=== PATIENT | female | born 1945 | race Caucasian/White ===

== ENCOUNTER 2024-08-19 20:30 | Inpatient (IN) | payer MEDICARE, SELFPAY ==
[2024-08-19] VITALS (7 sets, daily range): BP systolic 132–214; BP diastolic 62–114; BMI 30.2; BMI 29.6
--- NOTE | 2024-08-19 16:49 | ED.GENMED ---
History of Present Illness
General
Chief Complaint: Blood Pressure Problem
Source: patient and spouse
Exam Limitations: none
Time Seen by Provider: 08/19/24 16:48
History of Present Illness
History of Present Illness:
Patient complaining of hypertension issues. Long history of mild hypertension. Controlled on low-dose carvedilol
Past History
Past History
ED Past Medical History: HTN and Other (Seizures)
ED Past Surgical History: Appendectomy, Cholecystectomy and Other (Eye surgery. Thyroidectomy)
Review of Systems
Review of Systems
All Other Systems: Not applicable
Respiratory: Reports no symptoms
Cardiac: Reports no symptoms
ABD/GI: Reports no symptoms
Phy Exam
Physical Exam
Physical Exam:
GENERAL: Alert and oriented in no apparent distress
EYE: Orbits normal. Discharge
NECK: Supple, no significant adenopathy. No carotid bruit
ENT: Pharynx without erythema
CARDIAC: Regular rate and rhythm without any obvious murmurs.
LUNGS: Clear breath sounds,normal
ABDOMEN: Soft, without focal tenderness or distention
NEUROLOGICAL: Alert and oriented , grossly non-focal. Speech normal. Cranial nerves II through XII intact.
SKIN: Warm and dry, no rash or lesion, no discoloration, skin intact.
MUSCULOSKELETAL: No edema,no deformity.Good color
PSYCH: Normal and appropriate interaction..
Course
Orders/Labs/Results
Orders:
Orders
08/19/24 16:29
ECG [Electrocardiogram (*1)] Urgent
Reason for Study: Hypertension, Benign
EKG- Treatment ONCE
08/19/24 16:52
Complete Blood Count/With Diff Urgent
Comprehensive Metabolic Panel Urgent
TSH Reflex To Free T4 Urgent
Comment: ADD ON
Troponin I Urgent
08/19/24 17:20
Add On- LAB Urgent
Tests Added?: tsh reflex t4
CT Head W/o Iv Contrast Urgent
Comment:
Reason For Exam: Headache/hypertension
Cardiac Monitoring- Treatment ONCE
IV Insert/Care/Rem.- Treatment PRN
08/19/24 20:04
Admit/Transfer Patient As Directed
Co-Sign Provider:
Level of Care: Inpatient admission
Assign to:: Telemetry
Physician / Group: hospitalist
Diagnosis: hyponatremia
Reason for Telemetry: Other
Other Reason for Telemetry: uncontrolled bp
Date to Stop Telemetry: 08/21/24
Time to Stop Telemetry: 11:00
Reason for Hospitalization: uncontrolled bp, hyponatremia
Expected length of stay greater than two midnights?: Yes
ELOS- Estimated Length of Stay in days: 2
I certify the patient meets the requirements for IP care: Yes
PRN Pain Medication Management As Directed
May give lesser potent ordered pain med per pt: Yes
preference::
Protocol:: Medication orders for pain may be administered in a
manner that supports deferring to patient preference
when the pt is:
- Requesting an ordered lesser potent pain medication.
Least to most potent pain medications are defined
as: acetaminophen < NSAID < tramadol < opioids
(morphine, oxycodone, hydromorphone).
- Requesting a lesser dose of the same medication IF
ORDERED.
- Requesting a less intrusive route of administration
if both routes are prescribed by the provider (PO <
IV).
08/19/24 20:05
Code Status As Directed
Resuscitation Status: Full Code
08/19/24 22:04
Acetaminophen [Tylenol] 650 mg PO Q4HPRN PRN
Bisacodyl [Dulcolax] 10 mg RECTAL [id number] PRN
Docusate W/Senna [Senokot-S] 1 tablet PO BIDPRN PRN
HydrALAZINE [Apresoline] 10 mg IV Q6HPRN PRN
Losartan [Cozaar] 100 mg PO HS
Ondansetron Injectable [Zofran] 4 mg IV Q6HPRN PRN
Polyethylene Glycol Powder [Miralax] 17 grams PO DAILYPRN PRN
08/19/24 22:04
Osmolality, Random Urine Routine
Urinalysis Routine
Urine Sodium Routine
Activity As Directed
Activity Level: With Assistance
Pneumatic Compression Sleeves As Directed
Type: Knee high
Vital Signs As Directed
Frequency: Per unit guidelines
DX Deep Vein Thrombosis Video Routine
08/20/24 Breakfast
Regular
At Your Request: Full Participation
Fluid Restriction: 1000 mL/day (33 oz)
Basic Metabolic Panel IN AM
Magnesium IN AM
Levothyroxine [Synthroid] 88 mcg PO DAILY @ 0600
08/20/24 08:00
Amlodipine [Norvasc] 5 mg PO DAILY
Carvedilol [Coreg] 12.5 mg PO BID
08/21/24 11:00
DC Protocol for Telemetry ONCE
Abnormal Lab Results
08/19/24
16:52
WBC 3.0 L 10^3/uL
(4.8-10.8)
Hct 36.1 L %
(37.0-47.0)
Absolute Lymphs (auto) 0.9 L 10^3/uL
(1.2-3.4)
Monocytes % 10.2 H %
(1.7-9.3)
Sodium 124 L mmol/L
(135-145)
Chloride 91 L mmol/L
(98-107)
08/19/24 16:52
08/19/24 16:52
Vital Signs
Initial and Last Documented VS:
Initial Vital Signs
Temp Pulse Resp BP Pulse Ox
98.2 F 60 20 214/114 99
08/19/24 16:26 08/19/24 16:26 08/19/24 16:26 08/19/24 16:26 08/19/24 16:26
Last Documented Vital Signs
Temp Pulse Resp BP Pulse Ox
98.2 F 66 15 132/62 98
08/19/24 16:26 08/19/24 21:45 08/19/24 21:45 08/19/24 21:00 08/19/24 21:45
MDM/Problems Addressed
Differential Diagnosis Includes:
Patient with uncontrolled hypertension despite increasing doses of her carvedilol and lisinopril. Neurologically stable. Not describing cardiac issues. Will observe blood pressure check labs. Head CT with ongoing vague headaches.
*Radiology
Radiology exam reviewed: radiology read reviewed (Extensive subcortical and periventricular white matter hypodensities)
*Pulse Oximetry
Patient hypoxic: no
*EKG
Interpreted by ED Provider?: Yes
Interpretation: abnormal
Comparison EKG: no comparison EKG present
Heart Rate: 64
Rate: normal
Rhythm: sinus
[place]: left axis deviation
Interval: first degree heart block
QRS Pattern: right bundle branch block (inc)
Ischemia: no ischemia
*Critical Care Note
Total Time (30-74mins, 75-104mins- exclusive of procedures): Not Applicable
ED Attending Note
-
Portions of this chart may have been created with voice recognition software.� Occasional wrong word or��sound alike� substitutions may have occurred due to the inherent limitations of voice recognition software.
Discharge Plan
Departure
Patient Disposition: Admit
Date of Disposition: 08/19/24
Time of Disposition: 19:31
Presentation/result/management discussed w/ accepting MD/DO: Hospitalist
Discharge Problem:
Hyponatremia, Uncontrolled hypertension
Interventions
Interventions:
*Risk Screen - Suicide Last Done: 08/19/24 17:34
*General Assessment Last Done: 08/19/24 17:34
*Neglect/Abuse Screening Last Done: 08/19/24 17:34
*ED- Fall Risk Assessment Last Done: 08/19/24 17:34
*ED COVID-19 Vaccine History Last Done: 08/19/24 22:45
*Nursing Disposition Last Done: 08/19/24 22:11
ED- Cardiac Assessment Last Done: 08/19/24 17:45
ED- Neurological Assessment Last Done: 08/19/24 17:45
ED- Pulmonary Assessment Last Done: 08/19/24 17:45
Discharge Date and Time
Discharge Date/Time: 08/19/24 22:11
--- NOTE | 2024-08-19 17:00 | EDRN ---
Dr. Andre in to see pt at this time.
[2024-08-19 17:02] LABS: % Basophils 0.7 % (0-2); % Eosinophils 2.6 % (0-6); % Lymphocytes 30.9 % (20.5-51.1); % Monocytes 10.2 % (1.7-9.3); % Neutrophils 55.6 % (42.2-75.2); Absolute Eosinophils 0.1 10^3/uL (0-0.7); Absolute Lymphocytes 0.9 10^3/uL (1.2-3.4); Absolute Monocytes 0.3 10^3/uL (0.1-0.6); Absolute Neutrophils 1.7 10^3/uL (1.4-6.5); Hematocrit 36.1 % (37.0-47.0); Hemoglobin 12.8 g/dL (12.0-16.0); Mean Corp Hgb Conc. 35.5 g/dL (33.0-37.0); Mean Corpuscular Hgb 30.3 pg (27.0-31.0); Mean Corpuscular Volume 85.5 fL (81.0-99.0); Mean Platelet Volume 8.8 fL (7.4-10.4); Nucleated Red Blood Cells % 0 %; Platelet Count 239 10^3/uL (130-400); Red Blood Cell Count 4.22 10^6/uL (4.20-5.40); Red Cell Dist. Width 13.5 % (11.5-14.5)
[2024-08-19 17:23] LABS: Troponin I < 0.012 ng/ml
[2024-08-19 17:27] LABS: ALT (SGPT) 22 U/L (0-35); AST (SGOT) 29 U/L (14-36); Albumin 4.7 g/dl (3.5-5.0); Alkaline Phosphatase 84 U/L (38-126); Blood Urea Nitrogen 13 mg/dl (7-17); Calcium 9.5 mg/dl (8.4-10.2); Carbon Dioxide 24 mmol/L (22-30); Chloride 91 mmol/L (98-107); Glucose 84 mg/dl (70-99); Potassium 4.6 mmol/L (3.5-5.1); Sodium 124 mmol/L (135-145); Total Bilirubin 0.5 mg/dl (0.2-1.3); Total Protein 7.4 g/dl (6.3-8.2); eGFR > 60.00
--- NOTE | 2024-08-19 17:49 | EDRN ---
Dr. Andre in room w/pt at this time.
--- NOTE | 2024-08-19 17:51 | EDRN ---
Dr. Andre in room w/pt at this time discussing admission at this time.
[2024-08-19 18:53] LABS: TSH Reflex To Free T4 0.92 uIU/ml (0.47-4.68)
--- NOTE | 2024-08-19 19:54 | HPS.HSE ---
Family Physician
-
Family Physician: Tracie Anderson DO
Chief Complaint
-
Uncontrolled blood pressure
History of Present Illness
This is a 78-year-old female with past medical history of hypertension, nonconvulsive epilepsy, hypothyroid, presents to the emergency department after being found to be hypertensive to 200 systolic at home.
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 She was started on antiepileptic drugs in June/early July. At that time she had no improvement on the drug that she thought was probably be Depakote and
she was changed to oxcarbazepine mid July. Since then she has not had recurrence of the nonconvulsive seizures.
She reports that more recently she has been having increasing her blood pressure and has been uptitrating her antiantihypertensives. She is now on 12.5 mg twice daily of Coreg as well as 100 mg at bedtime of losartan.
She checked her blood pressure while playing cards today and it was as high as 200/90. She states she has a mild headache that is associated with elevated blood pressures when she checks them at home.
She denies having any chest pain. She denies any lightheadedness or dizziness. She denies any blurry vision or double vision. She denies any numbness tingling or weakness. Patient has no prior history of congestive heart failure.
On arrival in the emergency department blood pressure was 177/80 with a pulse of 55 and she was satting 98% on room air. ECG shows sinus rhythm rate of 64 with 4 degree AV block. Troponin was negative. CBC was unremarkable. Electrolytes notable
for sodium of 124 but otherwise unremarkable. TSH was normal.
CT of the head shows no acute intracranial changes.
Medical History
Past Medical History
Past Medical History: Reports HTN, Hypercholesterolemia, Hypothyroidism and Seizures
Past Surgical History: Reports Appendectomy, Cholecystectomy and Other (Thyroidectomy)
Social History
Tobacco: Former Smoker
Alcohol: Occasional
Drug: None
Personal:
Living: With Family
Employment: Not Employed
Family History
Family History: Not pertinent
Allergies / Home Medications
Allergies reflects when Allergies were last updated in [facility].
Home Medications with original date entered in [facility]
Allergy/Medication List:
Allergies
Allergy/AdvReac Type Severity Reaction Status Date / Time
No Known Allergies Allergy Unverified 08/19/24 16:26
Home Medications
atorvastatin 40 mg tablet 40 mg PO HS 08/19/24
calcium carbonate 500 mg PO DAILY 08/19/24
carvedilol 6.25 mg tablet 12.5 mg PO BID 08/19/24
cholecalciferol (vitamin D3) 50 mcg (2,000 unit) tablet (Vitamin D3) 50 mcg PO Q48H 08/19/24
cyanocobalamin (vitamin B-12) 1,000 mcg tablet 1,000 mcg PO DAILY 08/19/24
escitalopram oxalate 5 mg tablet 5 mg PO DAILY 08/19/24
levothyroxine 88 mcg tablet 88 mcg PO DAILY 08/19/24
losartan 100 mg tablet 100 mg PO HS 08/19/24
oxcarbazepine 150 mg tablet 300 mg PO BID 08/19/24
vitamin B comp and C no.3 15 mg-10 mg-50 mg-5 mg-300 mg capsule (B Complex Plus Vitamin C) 1 cap PO DAILY 08/19/24
Review of Systems
-
History Source: Patient
Constitutional: Reports No Symptoms
EENT: Reports No Symptoms
Respiratory: Reports No Symptoms
Cardiac: Reports No Symptoms
Abdomen/GI: Reports No Symptoms
: Reports No Symptoms
Musculoskeletal: Reports No Symptoms
Skin: Reports No Symptoms
Neurological: Reports No Symptoms
Endocrine: Reports No Symptoms
Hematologic/Lymphatic: Reports No Symptoms
Psych: Reports No Symptoms
Physical Exam
Vital Signs
Vital Signs
Temp Pulse Resp BP Pulse Ox
98.2 F 55 14 177/79 99
08/19/24 16:26 08/19/24 19:15 08/19/24 19:15 08/19/24 19:00 08/19/24 19:15
Physical Exam
General: Well Developed, Well Nourished, No Apparent Distress and Comfortable
HEENT: NormoCephalic, Anicteric, Moist mucous membranes and Atraumatic
Respiratory: Clear
Cardiac: S1/S2 and Regular Rhythm
Breast: Deferred by me
GI: Soft, Non Tender, Non Distended and Normal Bowel Sounds
Rectal: Deferred by Provider
Genito-urinary: Deferred by me
Musculoskeletal: No Clubbing, No Cyanosis and No Edema
Skin: Warm
Neuro: AO x 3 and Nonfocal/grossly intact
Hematologic/Lymphatic: No Lymphadenopathy
Psych: Calm
Laboratory Results
-
08/19/24 16:52
08/19/24 16:52
Laboratory Results
Total Bilirubin 0.5 mg/dl (0.2-1.3) 08/19/24 16:52
AST 29 U/L (14-36) 08/19/24 16:52
ALT 22 U/L (0-35) 08/19/24 16:52
Alkaline Phosphatase 84 U/L (38-126) 08/19/24 16:52
Troponin I < 0.012 ng/ml 08/19/24 16:52
Data Reviewed
-
CT Scan: Report Reviewed by me
Medical Tests (Nuc Med, Echo, EKG etc): Image Personally Visualized and interpreted
Lab Data: Labs Reviewed by me
Old Records: Reviewed
Impression/Plan
-
IMPRESSION:
78 y.o with nonconvulsive seizures recently placed on Oxacabazepine comes in with uncontrolled BP and Na 124. Patient reports she was told recently that her sodium was low but does not know the number. Prior to starting the oxcarbazepine she had
never been told she had low sodium. She is not on any diuretics and has no fluid losses.
PLAN:
Hyponatremia - Suspect SIADH secondary to oxcabazepine. She is euvolemic, hypertensive and with normal mental status.
- admit to telemetry
- will fluid restrict to 1000 L free water for now
- tsh normal
- checking urine osms
- will prefer to hold the oxcarbazepine (non convulsive seizures )
- nephrology and neurology consultations for med management
Hypertension -
- continue losartan 100
- continue carvedilol 12.5 bid
- likely will start nifedipine 30 bid
- start prn hydralazine to keep SBP < 180
DVT PPX - SCDs
Code status - Full Code
[2024-08-19] MEDS: COREG 12.5 MG PO (23:13)
[2024-08-19] MEDS: COZAAR 100 MG PO (23:14)
[2024-08-20] VITALS (8 sets, daily range): BP systolic 124–149; BP diastolic 67–90; PULSE 60
[2024-08-20 00:21] LABS: Urine Albumin Negative (Neg - Trace); Urine Bilirubin Negative (Negative); Urine Character Clear (Clear); Urine Glucose Negative (Negative); Urine Ketone Negative (Negative); Urine Leukocyte Negative (Negative); Urine Nitrite Negative (Negative); Urine Occult Blood Negative (Negative); Urine Urobilinogen Negative (Neg - 1+)
[2024-08-20 00:24] LABS: Urine Color Straw
[2024-08-20 00:25] LABS: Osmolality Urine 109 mOsm/kg (300-900)
--- NOTE | 2024-08-20 01:05 | PTCARENOTE ---
Patient arrived to unit via stretcher with dx of hyponatremia. AAOx3. Denies pain or discomfort. Pleasant and cooperative with care. Oriented to unit. Call wilhelm within reach.
[2024-08-20 04:22] LABS: Urine Sodium 28 mmol/L (30-90)
[2024-08-20] MEDS: SYNTHROID 88 MCG PO (05:54)
[2024-08-20] MEDS: NORVASC 5 MG PO (07:53)
[2024-08-20] MEDS: COREG 12.5 MG PO (07:53)
[2024-08-20 08:45] LABS: Blood Urea Nitrogen 11 mg/dl (7-17); Calcium 9.4 mg/dl (8.4-10.2); Carbon Dioxide 29 mmol/L (22-30); Chloride 96 mmol/L (98-107); Estimated Creatinine Clearance 76 ml/min; Glucose 76 mg/dl (70-99); Magnesium 2.2 mg/dl (1.6-2.3); Potassium 4.9 mmol/L (3.5-5.1); Sodium 132 mmol/L (135-145); eGFR > 60.00
[2024-08-20 08:52] LABS: % Basophils 0.9 % (0-2); % Eosinophils 4.1 % (0-6); % Lymphocytes 35.3 % (20.5-51.1); % Neutrophils 44.7 % (42.2-75.2); Absolute Eosinophils 0.1 10^3/uL (0-0.7); Absolute Lymphocytes 1.2 10^3/uL (1.2-3.4); Absolute Monocytes 0.5 10^3/uL (0.1-0.6); Absolute Neutrophils 1.5 10^3/uL (1.4-6.5); Hematocrit 36.5 % (37.0-47.0); Hemoglobin 12.9 g/dL (12.0-16.0); Mean Corp Hgb Conc. 35.3 g/dL (33.0-37.0); Mean Corpuscular Volume 87.7 fL (81.0-99.0); Mean Platelet Volume 9.3 fL (7.4-10.4); Nucleated Red Blood Cells % 0 %; Platelet Count 271 10^3/uL (130-400); Red Blood Cell Count 4.16 10^6/uL (4.20-5.40); Red Cell Dist. Width 13.5 % (11.5-14.5); White Blood Cell Count 3.4 10^3/uL (4.8-10.8)
--- NOTE | 2024-08-20 09:04 | W.PN.HOSP.TC ---
Addendum entered and electronically signed by Rosales Dixon MD 08/20/24 21:34:
Attending Addendum-
I saw and evaluated the patient. I reviewed the resident�s note and agree with findings and plan as documented in the resident�s note. Sub: Seen with . Patient has no complaints and feels improved. Denies STANTON CP palps vision changes. Full 12
point ROS reviewed and negative except as documented Exam: Vitals reviewed in chart GEN-NAD heart RRR No M/R/G Lungs clear abd soft LE no edema Neuro AAO x 3 MS 09/07 sensation intact
PLAN:
# Acute Hyponatremia
- euvolemic
- asymptomatic
- labs not consistent with SIADH
- cont to monitor on telemetry
- cont fluid restriction
- tsh normal
- restart oxcarbazepine
#Hypertensive Urgency
- resolved
- continue losartan 100
- decrease carvedilol
- add amlodipine
- prn hydralazine to keep SBP < 180
# Asymptomatic Bradycardia
- from coreg
- decrease dose
- monitor on tele
# Focal Epilepsy (nonconvulsive)
- appreciate neuro input
- restart Trileptal at lower dose
- add keppra
#HLD- cont atorvastatin
#Depression- cont lexapro
#Hypothyroidism- cont levothyroxine
DVT PPX - SCDs
Code status - DNR->Full Code (wants to rescind DNR)
ACP
Patient consented to discuss, was with , time spent explanation of advance directives, changes in health status, patient�s health care wishes if the patient becomes unable to make health decisions, goals of care, code status, and prognosis,
patient would like to rescind DNR, 'tim got plenty of life to live' - 16 minutes
Time spent coordinating care, review of plan of care with resident, personally reviewed previous records in EMR, med rec, labs, radiology, d/w nursing, family, neuro total time documented is exclusive of any additional time listed that was spent in
advance care planning discussion -�55 minutes
Original Note:
Today's Communication/Plan
-
Continue losartan and amlodipine
Reduce carvedilol to 6.25 mg BID
Follow BMP and continue fluid restriction
continue holding oxcarbazepine, neuro consult
Assessment / Plan
Assessment / Plan
78-year-old female with history of hypertension, nonconvulsive epilepsy, hypothyroidism, hypercholesterolemia, who presents with hypertensive urgency, bradycardia, chronic hyponatremia
Hypertensive urgency:
Uncontrolled hypertension
- Continue losartan
- Amlodipine 5 mg daily added with good response
- Lower carvedilol dose given bradycardia
- Hydralazine 10 mg IV PRN
Bradycardia:
- Asymptomatic
- Reduce carvedilol dose to 6.25 mg twice daily
Hyponatremia:
Chronic. Prior blood work >1 week ago showed hyponatremia in 120s (per patient)
- Urine osm 109, urine Na 28, TSH normal
- Likely medication side effect. Recent medication change to oxcarbazepine.
- Na improved. Continue to hold oxcarbazepine, continue fluid restriction
Seizure disorder:
Appears well-controlled on oxcarbazepine.
- Oxcarbazepine held for hyponatremia
-Consult neuro for seizure coverage
Hypothyroidism: Stable. Continue levothyroxine
Hypercholesterolemia: Continue atorvastatin
DVT prophylaxis: SCDs
CODE STATUS: Full code
Anticipated Discharge: Within 24 hours
Subjective/Interval History
-
Date of Service: August 20, 2024
Patient had new onset of non-convulsive seizures in the past months. She describes seizure episodes as beginning with a prodromal phase with nausea that resolves in a few seconds, sometimes with feeling of flushing in her face (an observer described
her looking pale). This is then followed by a seizure during which she is unable to speak or move, but with no LOC and remains aware of her surroundings. Family members and observers have said that she appears confused for some time after the
episode although she states she feels normal afterwards.
A little over a week ago, she saw her neurologist who did some blood tests that showed low sodium in the 120s and 'he was concerned'. She was initially on Depakote, but was switched to oxcarbazepine due to poor control of seizures. She has been on
Oxcarbazepine for about a month with no seizure recurrence.
She saw her psychiatrist (who she sees for anxiety) about a week ago, and her blood pressure was noted to be in the 170s. She lives in [place] [facility] home and saw the nurse there who also expressed concern about her elevated blood pressure. She
reached out to her machines technician's office within the past few days, who increased her carvedilol to 12.5mg BID and losartan to 100mg daily. However, home BP readings remained uncontrolled. Yesterday while playing a game with friends, she had a
headache and blood pressure reading of 200/99. She then decided to be evaluated at the ED.
She reports occasional headaches with changes in vision. No N/V, recent illness, chest pain or palpitations. No significant cardiac history (sees machines technician for hypertension).
She lives in a [place] [facility] community, eats a well-rounded diet. Does not drink water in excess.
She currently has a headache, but otherwise feels well.
Objective Data
-
Labs:
Laboratory Results
08/20/24 08/20/24
06:55 07:53
WBC 3.4 L Cancelled
Hgb 12.9 Cancelled
Hct 36.5 L Cancelled
Plt Count 271 Cancelled
Sodium 132 L D
Potassium 4.9
Chloride 96 L
Carbon Dioxide 29
BUN 11
Creatinine 0.7
Glucose 76
Calcium 9.4
Vital Signs:
Vital Signs
Temp Pulse Resp BP Pulse Ox
97.4 F 52 20 148/90 98
08/20/24 07:30 08/20/24 07:30 08/20/24 07:30 08/20/24 07:30 08/20/24 07:30
I&O
08/19/24 08/20/24 08/21/24
06:59 06:59 06:59
Output Total 400 / 400
Balance -400 / -400
Review of Systems
-
History Source: Patient
Constitutional: Denies No Appetite
EENT: Denies Decreased Vision
Respiratory: Denies Trouble Breathing
Cardiac: Denies Chest Pain or Palpitations
Abdomen/GI: Denies Abdominal Pain, Nausea, Vomiting, Diarrhea or Constipated
Genitourinary: Denies Dysuria, Difficulty Voiding or Bleeding
Neuro: Denies Dizzy or Headache
Endocrine: Denies Polydipsia or Excessive Thirst
Physical Exam
-
General: Well Developed, Well Nourished, No Apparent Distress and Comfortable
HEENT: Normocephalic, Atraumatic, Moist Mucous Membranes and Anicteric
Respiratory: Clear to Auscultation and Non Labored Respirations; Negative Wheezes, Rales, Rhonchi or Crackles
Cardiac: Regular Rhythm, S1/S2 and Bradycardic; Negative Murmur, Rub, Calf Tenderness or Hudson's Sign
GI: Soft, Nontender, Nondistended and Normal Bowel Sounds
Musculoskeletal: No Clubbing, No Cyanosis and No Edema
Skin: Warm and Dry
Neuro: Awake, Alert and Oriented
Psych: Calm; Negative Confused or Agitated
--- NOTE | 2024-08-20 10:44 | W.CON.NEPH ---
Consultation
-
Date/Time Consultation Requested: August 20, 2024 at 7 AM
Date/Time Consultation Performed: August 20, 2024 at 10 AM
Requesting Provider: Dr. mendes
Performing Provider: Dr. Yates
Reason for Consultation: Hyponatremia
Medical History
-
Chief Complaint: Hyponatremia
History of Present Illness:
78-year-old female with past medical history of hypertension, nonconvulsive epilepsy, hypothyroid, presents to the emergency department after being found to be hypertensive to 200 systolic at home.
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 She was started on antiepileptic drugs in June/early July. At that time she had no improvement on the drug that she thought was probably be Depakote and
she was changed to oxcarbazepine mid July.
Renal consult for hyponatremia 124
She does not take any excessive NSAIDs and from our conversation she drinks at least 32 ounces of tea just in the morning and appears to drink about 60 ounces in total per day but that is a guesstimate.
She otherwise has no symptoms and she is not on thiazide. She eats a high-protein diet as she is on a weight watchers
TSH is normal
Past Medical History
Hypertension, nonconvulsive epilepsy, hypothyroid,
Social History
Tobacco: Non-Smoker
Alcohol: None
Family History
Family History: Not Pertinent
Allergies / Home Medications
Allergy/AdvReac Type Severity Reaction Status Date / Time
No Known Allergies Allergy Unverified 08/19/24 16:26
�Medication �Instructions �Recorded �Confirmed �Type
atorvastatin 40 mg tablet 40 mg PO HS 08/19/24 History
calcium carbonate 500 mg PO DAILY Gastrointestinal 08/19/24 08/19/24 History
Issue
carvedilol 6.25 mg tablet 12.5 mg PO BID Blood Pressure 08/19/24 08/19/24 History
cholecalciferol (vitamin D3) 50 50 mcg PO Q48H Supplement 08/19/24 08/19/24 History
mcg (2,000 unit) tablet (Vitamin
D3)
cyanocobalamin (vitamin B-12) 1,000 mcg PO DAILY Supplement 08/19/24 08/19/24 History
1,000 mcg tablet
escitalopram oxalate 5 mg tablet 5 mg PO DAILY 08/19/24 08/19/24 History
levothyroxine 88 mcg tablet 88 mcg PO DAILY Thyroid 08/19/24 08/19/24 History
losartan 100 mg tablet 100 mg PO HS Blood Pressure 08/19/24 08/19/24 History
oxcarbazepine 150 mg tablet 300 mg PO BID Nonconvulsive 08/19/24 08/19/24 History
Seizures
vitamin B comp and C no.3 15 mg-10 1 cap PO DAILY Supplement 08/19/24 08/19/24 History
mg-50 mg-5 mg-300 mg capsule (B
Complex Plus Vitamin C)
Review of Systems
-
No chest pain or shortness of breath no difficulty urinating
All other systems: Negative unless noted
Physical Exam
Vital Signs
Vital Signs
Temp Pulse Resp BP Pulse Ox
97.4 F 52 20 148/90 98
08/20/24 07:30 08/20/24 07:30 08/20/24 07:30 08/20/24 07:30 08/20/24 07:30
Lab Results
WBC Cancelled 08/20/24 07:53
RBC Cancelled 08/20/24 07:53
Hgb Cancelled 08/20/24 07:53
Hct Cancelled 08/20/24 07:53
Plt Count Cancelled 08/20/24 07:53
Sodium 132 mmol/L (135-145) L D 08/20/24 06:55
Potassium 4.9 mmol/L (3.5-5.1) 08/20/24 06:55
Chloride 96 mmol/L (98-107) L 08/20/24 06:55
Carbon Dioxide 29 mmol/L (22-30) 08/20/24 06:55
BUN 11 mg/dl (7-17) 08/20/24 06:55
Creatinine 0.7 mg/dL (0.6-1.0) 08/20/24 06:55
eGFR > 60.00 08/20/24 06:55
Glucose 76 mg/dl (70-99) 08/20/24 06:55
Calcium 9.4 mg/dl (8.4-10.2) 08/20/24 06:55
Albumin 4.7 g/dl (3.5-5.0) 08/19/24 16:52
Physical Exam
General no acute distress
HEENT no cephalic atraumatic extraocular muscle intact no scleral icterus no JVD neck supple
lungs clear to auscultation bilateral
heart regular S1-S2 positive
abdomen soft nontender positive bowel sounds
extremities no edema pulses present bilateral
Neurologically nonfocal alert and oriented x 3
Skin no lesions no abrasions no petechiae
Psych normal affect no bizarre behavior
Data Reviewed
-
CT Scan: Image Personally Visualized and interpreted
Labs: Labs Reviewed by me, Discussed with Nurse and Discussed with Patient
Assessment/Plan
-
78-year-old female with past medical history of hypertension, nonconvulsive epilepsy, hypothyroid, presents to the emergency department after being found to be hypertensive to 200 systolic at home.
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 She was started on antiepileptic drugs in June/early July. At that time she had no improvement on the drug that she thought was probably be Depakote and
she was changed to oxcarbazepine mid July.
Renal consult for hyponatremia 124
She does not take any excessive NSAIDs and from our conversation she drinks at least 32 ounces of tea just in the morning and appears to drink about 60 ounces in total per day but that is a guesstimate.
She otherwise has no symptoms and she is not on thiazide. She eats a high-protein diet as she is on a weight watchers
TSH is normal
Impression.
Hyponatremia likely medication induced.
Hypertensive
Seizure disorder
Plan.
Initial sodium 124 improved to 132 with fluid restriction.
Agree with fluid restriction. This should be adequate to counteract the effects of antiseizure medications.
oxcarbazepine seems to work well for her so unless there is another option hopefully can maintain it with just fluid restriction.
Awaiting neurology consult.
Continue fluid restriction less than 48 ounces
--- NOTE | 2024-08-20 11:04 | CM ---
CM reviewed chart, patient seen with spouse, initial assessment completed. Patient resides at [facility], [facility], one level, no steps to enter. Patient denies the use of DME, reports has worked with
occupational therapy through [facility] in past, denies SNF. Patient PCP Tracie Case, [facility], confirms prescription coverage. Patient denies needs upon discharge at this time. CM will continue to follow for all
discharge planning needs.
Plan; home no needs anticipated
--- NOTE | 2024-08-20 11:05 | CON.NEURO ---
Consultation
Order
Date of Consultation: 08/20/24
Requesting Provider: Marci Brownlee MD, Resident
Reason for Consult: AED management.
Neurology Consultation Note.
HPI: This is a 78-year-old ambidextrous woman who presented to [facility] on 08/19/2024 with elevated blood pressure and was found to have hyponatremia. Neurology consultation was requested for management of epilepsy.
According to the patient she was diagnosed with epilepsy within the last year. She is under care of ANIL Lion at [facility] and has been managed with oxcarbazepine since mid July after being on Depakote. The patient reports that
has had intermittent staring episodes along with short-term memory problems prior to diagnosis. She also has history of a seizure at the age of 4.
ER VS: 214/114, 60-52, afebrile
EKG:NSR, 1 st degree of AVB
PDMP: none
Labs: WBCs�3.0, sodium�124, normal glucose, magnesium, LFTs, creatinine
CT head wo contrast�severe subcortical, deep, and periventricular white matter low-attenuation, compatible with changes of chronic small vessel ischemic disease. Mild global parenchymal volume loss
PMH: focal epilepsy, febrile seizure, HTN, DLP, hypothyroidism, QUENTIN, vitamin D deficiency
PSH:bilateral cataract surgery, appendectomy, cholecystectomy, thyroidectomy, bilateral hammertoe surgery
SH: former smoker, retired, does not drive
FH: No family history of epilepsy or neurodegenerative disorders
All:NKDA
ROS: Constitutional: Negative. Negative for chills, fever and unexpected weight change.
HENT: Negative for ear pain, hearing loss, tinnitus and trouble swallowing.
Eyes: Negative. Negative for photophobia, pain and visual disturbance.
Respiratory: Negative for cough, choking and shortness of breath.
Cardiovascular: Negative for chest pain, palpitations and leg swelling.
Gastrointestinal: Negative for abdominal pain and vomiting.
Endocrine: Negative. Negative for cold intolerance.
Genitourinary: Negative for dysuria, flank pain and urgency.
Musculoskeletal: Negative for back pain, gait problem, neck pain and neck stiffness.
Skin: Negative for rash.
Allergic/Immunologic: Negative. Negative for immunocompromised state.
Neurological: Positive for short-term memory impairment, recurrent
Psychiatric/Behavioral: Negative for behavioral problems, confusion and hallucinations.
General: Well developed. In no acute distress.
Cardio: Regular rate and rhythm without murmur. Extremities are without cyanosis or edema.
Neuro:
Mental Status: Alert, oriented to person, place. Date was incorrect. Normal attention and recall. Good fund of knowledge. Follows complex requests across the midline. Comprehension, naming, and repetition intact.
Cranial Nerves: Pupils are equally round and reactive to light. EOMs full. Visual bhatia full to confrontation. No ptosis. No nystagmus. V1-V3 intact to light touch and pinprick bilaterally, symmetric. Face symmetric. Impaired hearing AU.
The palate elevated well. SCMs and traps 5/5. Tongue midline. No dysarthria.
Motor: Normal bulk and tone. No pronator or arm drift. Strength 5/5 throughout.
Reflexes: Limited exam due to positioning. No clonus at the ankles, negative grasp
Sensory: Reduced vibration at the first toes
Coordination: No dysmetria or tremor.
Gait: deferred
Assessment and Plan:
I. Hypertensive urgency
II. Asymptomatic hyponatremia
III. Focal epilepsy
- Seizure precautions
- Avoid medications known to lower seizure threshold' hyponatremia (SSRIs)
- Reduce Trileptal to 150 mg twice daily and start Keppra as a blunt event of Trileptal as outpatient
- Lorazepam 2 mg IV as needed for GTC's lasting over 2 minutes with associated hypoxia
- Please obtain medical records from ANIL O[facility]
- Please recall neurology service with any questions or concerns
I personally reviewed all radiology and labs along with past medical records pertinent to current medical problems. Total time spent in patient care is 60 minutes.
Thank you for allowing us to participate in the care of this patient. Please do not hesitate to contact us with any questions or concerns.
Subjective/Objective
Subjective Data
Date of Service: August 20, 2024
Objective Data
Vital Signs
Temp Pulse Resp BP Pulse Ox
36.3 C 52 20 148/90 98
08/20/24 07:30 08/20/24 07:30 08/20/24 07:30 08/20/24 07:30 08/20/24 07:30
Lab Results
08/20/24 07:53
08/20/24 06:55
Sodium 132 mmol/L (135-145) L D 08/20/24 06:55
Potassium 4.9 mmol/L (3.5-5.1) 08/20/24 06:55
BUN 11 mg/dl (7-17) 08/20/24 06:55
Glucose 76 mg/dl (70-99) 08/20/24 06:55
Calcium 9.4 mg/dl (8.4-10.2) 08/20/24 06:55
Patient Allergies
No Known Allergies Allergy (Unverified 08/19/24 16:26)
Medications
-
Active Medications
Generic Name Dose Route Start Last Admin
Trade Name Freq PRN Reason Stop Dose Admin
Acetaminophen 650 mg 08/19/24 22:04
Acetaminophen 325 Mg Tablet PO 09/16/24 22:03
Q4HPRN PRN
mild pain/STANTON/temp> 100.4F
Amlodipine Besylate 5 mg 08/20/24 08:00 08/20/24 07:53
Amlodipine 5 Mg Tablet PO 09/17/24 07:59 5 mg
DAILY SORAYA Administration
Bisacodyl 10 mg 08/19/24 22:04
Bisacodyl 10 Mg Rectal Suppository RECTAL 09/16/24 22:03
[id number] PRN
constipation
Carvedilol 6.25 mg 08/20/24 20:00
Carvedilol 6.25 Mg Tablet PO 09/17/24 19:59
BID SORAYA
Hydralazine HCl 10 mg 08/19/24 22:04
Hydralazine 20 Mg/Ml Vial IV 09/16/24 22:03
Q6HPRN PRN
SBP > 180
Levothyroxine Sodium 88 mcg 08/20/24 06:00 08/20/24 05:54
Levothyroxine 88 Mcg Tablet PO 09/17/24 05:59 88 mcg
DAILY @ 0600 SORAYA Administration
Losartan Potassium 100 mg 08/19/24 22:04 08/19/24 23:14
Losartan 100 Mg Tablet PO 09/16/24 22:03 100 mg
HS SORAYA Administration
Ondansetron HCl 4 mg 08/19/24 22:04
Ondansetron 4 Mg/2 Ml Vial IV 09/16/24 22:03
Q6HPRN PRN
nausea and vomiting
Polyethylene Glycol 17 grams 08/19/24 22:04
Polyethylene Glycol Powder 17 Grams Packet PO 09/16/24 22:03
DAILYPRN PRN
constipation
Senna/Docusate Sodium 1 tablet 08/19/24 22:04
Docusate W/Senna (Apolonia-Colace) Tablet PO 09/16/24 22:03
BIDPRN PRN
constipation
Sodium Chloride 0 flush 08/19/24 23:00
Sodium Chloride 0.9% (Flush) Syringe IV 09/16/24 22:59
PER PROTOCOL SORAYA
Home Medications
�Medication �Instructions �Recorded
atorvastatin 40 mg tablet 40 mg PO HS 08/19/24
calcium carbonate 500 mg PO DAILY Gastrointestinal 08/19/24
Issue
carvedilol 6.25 mg tablet 12.5 mg PO BID Blood Pressure 08/19/24
cholecalciferol (vitamin D3) 50 50 mcg PO Q48H Supplement 08/19/24
mcg (2,000 unit) tablet (Vitamin
D3)
cyanocobalamin (vitamin B-12) 1,000 mcg PO DAILY Supplement 08/19/24
1,000 mcg tablet
escitalopram oxalate 5 mg tablet 5 mg PO DAILY 08/19/24
levothyroxine 88 mcg tablet 88 mcg PO DAILY Thyroid 08/19/24
losartan 100 mg tablet 100 mg PO HS Blood Pressure 08/19/24
oxcarbazepine 150 mg tablet 300 mg PO BID Nonconvulsive 08/19/24
Seizures
vitamin B comp and C no.3 15 mg-10 1 cap PO DAILY Supplement 08/19/24
mg-50 mg-5 mg-300 mg capsule (B
Complex Plus Vitamin C)
Vital Signs and Labs
-
Vital Signs and Labs:
Vital Signs
Temp Pulse Resp BP Pulse Ox
36.3 C 52 20 148/90 98
08/20/24 07:30 08/20/24 07:30 08/20/24 07:30 08/20/24 07:30 08/20/24 07:30
Lab Results
08/20/24 07:53
08/20/24 06:55
Sodium 132 mmol/L (135-145) L D 08/20/24 06:55
Potassium 4.9 mmol/L (3.5-5.1) 08/20/24 06:55
BUN 11 mg/dl (7-17) 08/20/24 06:55
Glucose 76 mg/dl (70-99) 08/20/24 06:55
Calcium 9.4 mg/dl (8.4-10.2) 08/20/24 06:55
Medications
-
Medications:
Generic Name Dose Route Start Last Admin
Trade Name Freq PRN Reason Stop Dose Admin
Acetaminophen 650 mg 08/19/24 22:04
Acetaminophen 325 Mg Tablet PO 09/16/24 22:03
Q4HPRN PRN
mild pain/STANTON/temp> 100.4F
Amlodipine Besylate 5 mg 08/20/24 08:00 08/20/24 07:53
Amlodipine 5 Mg Tablet PO 09/17/24 07:59 5 mg
DAILY SORAYA Administration
Bisacodyl 10 mg 08/19/24 22:04
Bisacodyl 10 Mg Rectal Suppository RECTAL 09/16/24 22:03
[id number] PRN
constipation
Carvedilol 6.25 mg 08/20/24 20:00
Carvedilol 6.25 Mg Tablet PO 09/17/24 19:59
BID SORAYA
Hydralazine HCl 10 mg 08/19/24 22:04
Hydralazine 20 Mg/Ml Vial IV 09/16/24 22:03
Q6HPRN PRN
SBP > 180
Levothyroxine Sodium 88 mcg 08/20/24 06:00 08/20/24 05:54
Levothyroxine 88 Mcg Tablet PO 09/17/24 05:59 88 mcg
DAILY @ 0600 SORAYA Administration
Losartan Potassium 100 mg 08/19/24 22:04 08/19/24 23:14
Losartan 100 Mg Tablet PO 09/16/24 22:03 100 mg
HS SORAYA Administration
Ondansetron HCl 4 mg 08/19/24 22:04
Ondansetron 4 Mg/2 Ml Vial IV 09/16/24 22:03
Q6HPRN PRN
nausea and vomiting
Polyethylene Glycol 17 grams 08/19/24 22:04
Polyethylene Glycol Powder 17 Grams Packet PO 09/16/24 22:03
DAILYPRN PRN
constipation
Senna/Docusate Sodium 1 tablet 08/19/24 22:04
Docusate W/Senna (Apolonia-Colace) Tablet PO 09/16/24 22:03
BIDPRN PRN
constipation
Sodium Chloride 0 flush 08/19/24 23:00
Sodium Chloride 0.9% (Flush) Syringe IV 09/16/24 22:59
PER PROTOCOL SORAYA
Home Medications
-
Home Medications
atorvastatin 40 mg tablet 40 mg PO HS 08/19/24
calcium carbonate 500 mg PO DAILY Gastrointestinal Issue 08/19/24
carvedilol 6.25 mg tablet 12.5 mg PO BID Blood Pressure 08/19/24
cholecalciferol (vitamin D3) 50 mcg (2,000 unit) tablet (Vitamin D3) 50 mcg PO Q48H Supplement 08/19/24
cyanocobalamin (vitamin B-12) 1,000 mcg tablet 1,000 mcg PO DAILY Supplement 08/19/24
escitalopram oxalate 5 mg tablet 5 mg PO DAILY 08/19/24
levothyroxine 88 mcg tablet 88 mcg PO DAILY Thyroid 08/19/24
losartan 100 mg tablet 100 mg PO HS Blood Pressure 08/19/24
oxcarbazepine 150 mg tablet 300 mg PO BID Nonconvulsive Seizures 08/19/24
vitamin B comp and C no.3 15 mg-10 mg-50 mg-5 mg-300 mg capsule (B Complex Plus Vitamin C) 1 cap PO DAILY Supplement 08/19/24
[2024-08-20] MEDS: KEPPRA 1000 MG IV (12:01)
[2024-08-20] MEDS: COREG 6.25 MG PO (19:40)
[2024-08-20] MEDS: KEPPRA 500 MG IV (19:40)
[2024-08-20] MEDS: TRILEPTAL 150 MG PO (19:40)
[2024-08-20] MEDS: COZAAR 100 MG PO (21:41)
[2024-08-21 03:45] VITALS: BP 123/60
[2024-08-21] MEDS: SYNTHROID 88 MCG PO (07:04)
[2024-08-21 07:40] VITALS: BP 153/90
--- NOTE | 2024-08-21 07:51 | W.PN.NEURO.1 ---
Today's Communication / Plan
-
.
Subjective/Objective
Subjective Data
Date of Service: August 21, 2024
Neurology follow-up note.
Ms. Moore reports no complaints. She tolerated Keppra well no reported or documented seizures.
Na-132�135.
PMH: focal epilepsy, febrile seizure, HTN, DLP, hypothyroidism, QUENTIN, vitamin D deficiency
PSH:bilateral cataract surgery, appendectomy, cholecystectomy, thyroidectomy, bilateral hammertoe surgery
SH: former smoker, retired, does not drive
FH: No family history of epilepsy or neurodegenerative disorders
All:NKDA
ROS: Constitutional: Negative. Negative for chills, fever and unexpected weight change.
HENT: Negative for ear pain, hearing loss, tinnitus and trouble swallowing.
Eyes: Negative. Negative for photophobia, pain and visual disturbance.
Respiratory: Negative for cough, choking and shortness of breath.
Cardiovascular: Negative for chest pain, palpitations and leg swelling.
Gastrointestinal: Negative for abdominal pain and vomiting.
Endocrine: Negative. Negative for cold intolerance.
Genitourinary: Negative for dysuria, flank pain and urgency.
Musculoskeletal: Negative for back pain, gait problem, neck pain and neck stiffness.
Skin: Negative for rash.
Allergic/Immunologic: Negative. Negative for immunocompromised state.
Neurological: Positive for short-term memory impairment, recurrent
Psychiatric/Behavioral: Negative for behavioral problems, confusion and hallucinations.
General: Well developed. In no acute distress.
Cardio: Regular rate and rhythm without murmur. Extremities are without cyanosis or edema.
Neuro:
Mental Status: Alert, oriented to person, place. Date was incorrect. Normal attention and recall. Good fund of knowledge. Follows complex requests across the midline. Comprehension, naming, and repetition intact.
Cranial Nerves: Pupils are equally round and reactive to light. EOMs full. Visual bhatia full to confrontation. No ptosis. No nystagmus. V1-V3 intact to light touch and pinprick bilaterally, symmetric. Face symmetric. Impaired hearing AU.
The palate elevated well. SCMs and traps 5/5. Tongue midline. No dysarthria.
Motor: Normal bulk and tone. No pronator or arm drift. Strength 5/5 throughout.
Reflexes: Limited exam due to positioning. No clonus at the ankles, negative grasp
Sensory: Reduced vibration at the first toes
Coordination: No dysmetria or tremor.
Gait: deferred
Assessment and Plan:
I. Medication induced hyponatremia, resolved
II. Focal epilepsy
III. QUENTIN
- Seizure precautions
- Continue Trileptal to 150 mg twice daily with the plan of weaning off as outpatient
- Continue Keppra 500 mg twice daily
- Please recall neurology service with any questions or concerns
I personally reviewed all radiology and labs along with past medical records pertinent to current medical problems. Total time spent in patient care is 37 minutes.
Thank you for allowing us to participate in the care of this patient. Please do not hesitate to contact us with any questions or concerns.
Objective Data
Vital Signs
Temp Pulse Resp BP Pulse Ox
36.6 C 59 18 123/60 96
08/21/24 03:45 08/21/24 03:45 08/21/24 03:45 08/21/24 03:45 08/21/24 03:45
Lab Results
08/20/24 07:53
Sodium 132 mmol/L (135-145) L D 08/20/24 06:55
Potassium 4.9 mmol/L (3.5-5.1) 08/20/24 06:55
BUN 11 mg/dl (7-17) 08/20/24 06:55
Glucose 76 mg/dl (70-99) 08/20/24 06:55
Calcium 9.4 mg/dl (8.4-10.2) 08/20/24 06:55
Patient Allergies
No Known Allergies Allergy (Unverified 08/19/24 16:26)
Vital Signs and Labs
-
Vital Signs and Labs:
Vital Signs
Temp Pulse Resp BP Pulse Ox
36.3 C 53 19 153/90 100
08/21/24 07:40 08/21/24 07:40 08/21/24 07:40 08/21/24 07:40 08/21/24 07:40
Lab Results
08/20/24 07:53
08/21/24 08:02
Sodium 135 mmol/L (135-145) 08/21/24 08:02
Potassium 4.5 mmol/L (3.5-5.1) 08/21/24 08:02
BUN 16 mg/dl (7-17) 08/21/24 08:02
Glucose 74 mg/dl (70-99) 08/21/24 08:02
Calcium 9.6 mg/dl (8.4-10.2) 08/21/24 08:02
Medications
-
Medications:
Generic Name Dose Route Start Last Admin
Trade Name Freq PRN Reason Stop Dose Admin
Acetaminophen 650 mg 08/19/24 22:04
Acetaminophen 325 Mg Tablet PO 09/16/24 22:03
Q4HPRN PRN
mild pain/STANTON/temp> 100.4F
Amlodipine Besylate 5 mg 08/20/24 08:00 08/21/24 08:28
Amlodipine 5 Mg Tablet PO 09/17/24 07:59 5 mg
DAILY SORAYA Administration
Bisacodyl 10 mg 08/19/24 22:04
Bisacodyl 10 Mg Rectal Suppository RECTAL 09/16/24 22:03
[id number] PRN
constipation
Carvedilol 6.25 mg 08/20/24 20:00 08/21/24 08:28
Carvedilol 6.25 Mg Tablet PO 09/17/24 19:59 6.25 mg
BID SORAYA Administration
Hydralazine HCl 10 mg 08/19/24 22:04
Hydralazine 20 Mg/Ml Vial IV 09/16/24 22:03
Q6HPRN PRN
SBP > 180
Levetiracetam 500 mg 08/20/24 20:00 08/21/24 08:28
Levetiracetam (100 Mg/Ml) 500 Mg/5 Ml Vial IV 09/17/24 19:59 500 mg
Q12 SORAYA Administration
Levothyroxine Sodium 88 mcg 08/20/24 06:00 08/21/24 07:04
Levothyroxine 88 Mcg Tablet PO 09/17/24 05:59 88 mcg
DAILY @ 0600 SORAYA Administration
Losartan Potassium 100 mg 08/19/24 22:04 08/20/24 21:41
Losartan 100 Mg Tablet PO 09/16/24 22:03 100 mg
HS SORAYA Administration
Ondansetron HCl 4 mg 08/19/24 22:04
Ondansetron 4 Mg/2 Ml Vial IV 09/16/24 22:03
Q6HPRN PRN
nausea and vomiting
Oxcarbazepine 150 mg 08/20/24 20:00 08/21/24 08:28
Oxcarbazepine 150 Mg Tablet PO 09/17/24 19:59 150 mg
BID SORAYA Administration
Polyethylene Glycol 17 grams 08/19/24 22:04
Polyethylene Glycol Powder 17 Grams Packet PO 09/16/24 22:03
DAILYPRN PRN
constipation
Senna/Docusate Sodium 1 tablet 08/19/24 22:04
Docusate W/Senna (Apolnoia-Colace) Tablet PO 09/16/24 22:03
BIDPRN PRN
constipation
Sodium Chloride 0 flush 08/19/24 23:00
Sodium Chloride 0.9% (Flush) Syringe IV 09/16/24 22:59
PER PROTOCOL SORAYA
[2024-08-21] MEDS: TRILEPTAL 150 MG PO (08:28)
[2024-08-21] MEDS: NORVASC 5 MG PO (08:28)
[2024-08-21] MEDS: KEPPRA 500 MG IV (08:28)
[2024-08-21] MEDS: COREG 6.25 MG PO (08:28)
[2024-08-21 08:34] LABS: Blood Urea Nitrogen 16 mg/dl (7-17); Calcium 9.6 mg/dl (8.4-10.2); Carbon Dioxide 23 mmol/L (22-30); Chloride 102 mmol/L (98-107); Estimated Creatinine Clearance 76 ml/min; Glucose 74 mg/dl (70-99); Potassium 4.5 mmol/L (3.5-5.1); Sodium 135 mmol/L (135-145); eGFR > 60.00
--- NOTE | 2024-08-21 11:00 | CM ---
CM reviewed chart, patient seen bedside, reports no needs. Patient reports her will provide transportation home. IMM reviewed, signed, placed in chart. CM will continue to follow for all discharge planning needs.
Plan; home no needs.
[2024-08-21 12:05] VITALS: BP 121/70
--- NOTE | 2024-08-21 12:50 | W.PN.NEPH.PH ---
Today's Communication / Plan
-
ok for d/c
Assessment/Plan
-
78-year-old female with past medical history of hypertension, nonconvulsive epilepsy, hypothyroid, presents to the emergency department after being found to be hypertensive to 200 systolic at home.
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 She was started on antiepileptic drugs in June/early July. At that time she had no improvement on the drug that she thought was probably be Depakote and
she was changed to oxcarbazepine mid July.
Renal consult for hyponatremia 124
She does not take any excessive NSAIDs and from our conversation she drinks at least 32 ounces of tea just in the morning and appears to drink about 60 ounces in total per day but that is a guesstimate.
She otherwise has no symptoms and she is not on thiazide. She eats a high-protein diet as she is on a weight watchers
TSH is normal
Impression.
Hyponatremia likely medication induced.
Hypertensive
Seizure disorder
Plan.
sodium now at 135 with FR alone
U osmo was 109, U na 28 suggest possible polydipsia
expect to maintain sodium with FR alone
cotn Trileptal per neuro
f/u BMP 1week with PCP
d/w pt
-
-
Date of Service: August 21, 2024
CC / HPI / ROS
-
Chief Complaint:
hypoantremia
History of Present Illness:
sodium better at 135
bp stable , no fever
Review of Systems:
no cp or sob
feels well
Labs
-
Labs:
WBC Cancelled 08/20/24 07:53
RBC Cancelled 08/20/24 07:53
Hgb Cancelled 08/20/24 07:53
Hct Cancelled 08/20/24 07:53
Plt Count Cancelled 08/20/24 07:53
Sodium 135 mmol/L (135-145) 08/21/24 08:02
Potassium 4.5 mmol/L (3.5-5.1) 08/21/24 08:02
Chloride 102 mmol/L (98-107) 08/21/24 08:02
Carbon Dioxide 23 mmol/L (22-30) 08/21/24 08:02
BUN 16 mg/dl (7-17) 08/21/24 08:02
Creatinine 0.7 mg/dL (0.6-1.0) 08/21/24 08:02
eGFR > 60.00 08/21/24 08:02
Glucose 74 mg/dl (70-99) 08/21/24 08:02
Calcium 9.6 mg/dl (8.4-10.2) 08/21/24 08:02
Albumin 4.7 g/dl (3.5-5.0) 08/19/24 16:52
Physical Exam
-
Vital Signs:
Vital Signs
Temp Pulse Resp BP Pulse Ox
97 F 58 19 121/70 100
08/21/24 12:05 08/21/24 12:05 08/21/24 12:05 08/21/24 12:05 08/21/24 12:05
Cardiovascular:: Regular rate and rhythm
Respiratory:: Bilateral: CTA
Lung Excursion:: Normal
Abdomen:: Nontender and Soft
Extremity Edema:: None: Bilateral:
Miramontes Catheter: No
--- NOTE | 2024-08-21 13:11 | W.PN.HOSP.TC ---
Addendum entered and electronically signed by Rosales Dixon MD 08/21/24 20:51:
Attending Addendum-
I saw and evaluated the patient. I reviewed the resident�s note and agree with findings and plan as documented in the resident�s note. Sub: Seen with . Patient has no complaints and feels improved. 'im ready to go home' Denies [facility] CP palps
vision changes. Full 12 point ROS reviewed and negative except as documented Exam: Vitals reviewed in chart GEN-NAD heart RRR No M/R/G Lungs clear abd soft LE no edema Neuro AAO x 3 MS 09/07 sensation intact
PLAN:
# Acute Hyponatremia
- resolved
- euvolemic
- asymptomatic
- labs not consistent with SIADH
- cont to monitor on telemetry
- cont fluid restriction
- tsh normal
- restarted oxcarbazepine
#Hypertensive Urgency
- resolved
- continue losartan 100
- decrease carvedilol
- add amlodipine
- prn hydralazine to keep SBP < 180
# Asymptomatic Bradycardia
- from coreg
- decrease dose
- monitor on tele
# Focal Epilepsy (nonconvulsive)
- appreciate neuro input
- restart Trileptal at lower dose- taper to off as OP
- add keppra
#HLD- cont atorvastatin
#Depression- DC lexapro
#Hypothyroidism- cont levothyroxine
DVT PPX - SCDs
Code status - DNR->Full Code (wants to rescind DNR)
Time spent coordinating care, DC planning, review of DC plan of care with resident, transition of care, review of records, med rec/scripts sent electronically, consults, notes, d/w consultants, OP neuro, nursing, family, and CM� 31 mins
Original Note:
Today's Communication/Plan
-
Stable for DC
Assessment / Plan
Assessment / Plan
78-year-old female with history of hypertension, nonconvulsive epilepsy, hypothyroidism, hypercholesterolemia, who presents with hypertensive urgency, bradycardia, chronic hyponatremia
Hypertensive urgency:
Uncontrolled hypertension
- Continue losartan
- Continue amlodipine 5 mg daily
- Continue carvedilol at lower dose of 6.25 twice daily
- Hydralazine 10 mg IV PRN
- Stable for discharge
Bradycardia:
- Asymptomatic
- carvedilol reduced to 6.5mg BID. Encourage outpatient follow up with direct care specialist
Hyponatremia:
Chronic. Prior blood work >1 week ago showed hyponatremia in 120s (per patient)
- Urine osm 109, urine Na 28, TSH normal
- Likely medication side effect. Hx of recent medication change to oxcarbazepine.
- Na improved. Oxcarbazepine dose halved with plan to taper.
Seizure disorder:
Appears well-controlled on oxcarbazepine.
- Oxcarbazepine dose reduced to 150mg BID given hyponatremia, with plan to taper off outpatient
- Keppra 500mg BID
- Appreciate neuro recs
Anxiety:
- Escitalopram discontinued given history of hyponatremia.
- Encourage outpt psychiatrist follow up for non-SSRI medication given history of hyponatremia
Hypothyroidism: Stable. Continue levothyroxine
Hypercholesterolemia: Continue atorvastatin
DVT prophylaxis: SCDs
CODE STATUS: Full code
I spoke to patient's outpatient neurologist, Dr. Nanci Oden, with updates of the above changes. She is to have a follow up appointment in early September. She has also requested a discharge summary which I will send to her office by fax: [phone]
Anticipated Discharge: Today
Subjective/Interval History
-
Date of Service: August 21, 2024
Feels well, no complaints. No acute overnight events
Objective Data
-
Labs:
Laboratory Results
08/21/24
08:02
Sodium 135
Potassium 4.5
Chloride 102
Carbon Dioxide 23
BUN 16
Creatinine 0.7
Glucose 74
Calcium 9.6
Vital Signs:
Vital Signs
Temp Pulse Resp BP Pulse Ox
97 F 58 19 121/70 100
08/21/24 12:05 08/21/24 12:05 08/21/24 12:05 08/21/24 12:05 08/21/24 12:05
I&O
08/20/24 08/21/24 08/22/24
06:59 06:59 06:59
Intake Total 540 / 540
Output Total 400 / 400
Balance -400 / -400 540 / 540
Review of Systems
-
History Source: Patient
Respiratory: Denies Trouble Breathing
Cardiac: Denies Chest Pain, Palpitations, Syncope or Orthopnea
Abdomen/GI: Denies Abdominal Pain, Nausea, Vomiting, Diarrhea, Constipated or Bloody Stools
Genitourinary: Denies Dysuria or Difficulty Voiding
Neuro: Denies Dizzy, Headache or Lightheadedness
Physical Exam
-
General: Well Developed, Well Nourished, No Apparent Distress and Comfortable; Negative Respiratory Distress
HEENT: Normocephalic, Atraumatic, Moist Mucous Membranes and Anicteric
Respiratory: Clear to Auscultation and Non Labored Respirations; Negative Wheezes, Rales, Rhonchi or Crackles
Cardiac: Regular Rhythm and S1/S2; Negative Murmur, Rub or Calf Tenderness
GI: Soft, Nontender, Nondistended and Normal Bowel Sounds
Musculoskeletal: No Clubbing, No Cyanosis and No Edema
Skin: Warm and Dry
Neuro: Awake, Alert and Oriented
Psych: Calm
--- NOTE | 2024-08-21 17:29 | W.DCSUMMARY ---
Addendum entered and electronically signed by Rosales Dixon MD 08/21/24 20:52:
Read, reviewed, and agree. See same day progress note for additional details. plan conveyed to OP neuro. All parties in agreement
Dami Dixon MD
Original Note:
Documented by User: Marci Brownlee MD, Resident 08/21/24 18:03
Discharge Summary
Discharge Data
Date of Admission: 08/19/24
Date of Discharge: 08/21/24
-
Pending Results: No
Hospital Course
Discharging Physician : Marci Brownlee MD., Rosales Dixon MD.
Disposition : Home
Primary care physician : Tracie Anderson DO.
Principal Discharge diagnosis : Hypertensive urgency, uncontrolled hypertension, bradycardia, hyponatremia, seizure disorder
Chronic Discharge diagnosis : Essential hypertension, seizure disorder, anxiety, hypothyroidism, hypercholesterolemia
Hospital Course :
78-year-old female with above past medical history who presented with hypertensive urgency, bradycardia, and hyponatremia.
Hypertensive urgency:
Uncontrolled hypertension
- Losartan 100 mg daily was continued. Amlodipine 5 mg daily was added to regimen. Carvedilol 12.5 mg twice daily was changed to 6.5 mg due to bradycardia.
- Good control of blood pressure with this regimen was noted while admitted. To continue this regimen at home. Recommend follow-up with PCP/sales representative supervisor for further management
Bradycardia:
Asymptomatic bradycardia to the 50s. Carvedilol dose reduced to 6.5mg BID. Recommend sales representative supervisor follow-up.
Hyponatremia:
Secondary to medication side effect. Hx of recent medication change to oxcarbazepine.
- Oxcarbazepine initially held and then dose adjusted to 150 mg twice daily, with plan to taper off with outpatient neurologist Dr michela Oden, [facility].
- Escitalopram 5 mg daily was discontinued. Recommend outpatient follow-up with patient's psychiatrist for anxiety/depression management given this change. Consider non-SSRI therapy.
Seizure disorder:
Focal epilepsy. Appeared well-controlled on oxcarbazepine 300mg BID
- Oxcarbazepine dose reduced to 150mg BID given hyponatremia, with plan to taper off.
- Keppra IV started which was well-tolerated with no documented seizures. To continue with 500mg BID upon discharge. Strongly recommend timely follow-up with Dr. Oden.
Other chronic medications were continued as appropriate. Patient remained stable and was discharged to home.
Important data:
Head CT 08/19/2024:
No acute intracranial abnormality noted. There is extensive subcortical and periventricular white matter hypodensities which are nonspecific however likely sequelae of severe chronic small vessel ischemic disease.
ECG 08/19/2024:
Vent. Rate : 064 BPM Atrial Rate : 064 BPM
P-R Int : 216 ms QRS Dur : 112 ms
QT Int : 442 ms P-R-T Axes : 059 -42 057 degrees
QTc Int : 455 ms
SINUS RHYTHM WITH 1ST DEGREE A-V BLOCK
LEFT AXIS DEVIATION
INCOMPLETE RIGHT BUNDLE BRANCH BLOCK
MINIMAL VOLTAGE CRITERIA FOR LVH, MAY BE NORMAL VARIANT ( [employer] product )
Discharge Plan
-
Patient Disposition: Home (Routine Discharge)
Discharge Diagnosis/Procedures: Hypertensive urgency, uncontrolled hypertension, bradycardia, hyponatremia, seizure disorder
Condition: Good
Diet: Low Cholesterol
Activity: No restrictions
Driving Restrictions: As prior to admission
Bathing Restrictions: None
Referrals:
Tracie Anderson, DO [Family Provider] - in less than 1 week
Additional Discharge Medication Instructions: Your Oxcarbazepine (trileptal) was reduced from 300mg twice daily to 150mg twice daily with the plan for your outpatient neurologist to taper your off slowly. You were also started on another
anti-seizure medication called Keppra. Follow up with your neurologist as soon as possible for your seizure control.
Escitalopram, which you take for your anxiety was also discontinued on this admission because it can increase the risk of hyponatremia. you should follow up with your psychiatrist soon to help manage your anxiety.
Follow up with your sales representative supervisor to discuss your new blood pressure medications, your blood pressure control, and mildly low heart rate.
Prescriptions:
New
carvedilol 6.25 mg Tablet
6.25 mg PO BID Qty: 60 0RF
levetiracetam 500 mg Tablet
500 mg PO BID Qty: 60 0RF
amlodipine 5 mg Tablet
5 mg PO DAILY Qty: 30 0RF
Continued
atorvastatin 40 mg Tablet
40 mg PO HS
Patient Comments:
08/19/24: Patient part of study, unsure if given atorvastatin or a placebo
cyanocobalamin (vitamin B-12) 1,000 mcg Tablet
1,000 mcg PO DAILY
levothyroxine 88 mcg Tablet
88 mcg PO DAILY
calcium carbonate 500 mg calcium (1,250 mg) Tablet
500 mg PO DAILY
losartan 100 mg Tablet
100 mg PO HS
B Complex Plus Vitamin C 50-87-99-5-300 mg Capsule
1 cap PO DAILY
cholecalciferol (vitamin D3) [Vitamin D3] 50 mcg (2,000 unit) Tablet
50 mcg PO Q48H
Changed
oxcarbazepine 150 mg Tablet
150 mg PO BID Qty: 0 0RF
Discontinued
carvedilol 6.25 mg Tablet
12.5 mg PO BID
escitalopram oxalate 5 mg Tablet
5 mg PO DAILY
Discharge Orders:
Discharge Patient (As Directed); Ordered 08/21/24
Ordered By: Marci Brownlee
Discharge Date and Time
Discharge Date/Time: 08/21/24 15:05
Print Language: SCOTTISH

Documented by User: Rosales Dixon MD 08/21/24 20:50
Discharge Summary
Discharge Data
Date of Admission: 08/19/24
Date of Discharge: 08/21/24
Discharge Plan
-
Patient Disposition: Home (Routine Discharge)
Discharge Diagnosis/Procedures: Hypertensive urgency, uncontrolled hypertension, bradycardia, hyponatremia, seizure disorder
Condition: Good
Diet: Low Cholesterol
Activity: No restrictions
Driving Restrictions: As prior to admission
Bathing Restrictions: None
Referrals:
Tracie Anderson, [Family Provider] - in less than 1 week
Additional Discharge Medication Instructions: Your Oxcarbazepine (trileptal) was reduced from 300mg twice daily to 150mg twice daily with the plan for your outpatient neurologist to taper your off slowly. You were also started on another
anti-seizure medication called Keppra. Follow up with your neurologist as soon as possible for your seizure control.
Escitalopram, which you take for your anxiety was also discontinued on this admission because it can increase the risk of hyponatremia. you should follow up with your psychiatrist soon to help manage your anxiety.
Follow up with your sales representative supervisor to discuss your new blood pressure medications, your blood pressure control, and mildly low heart rate.
Prescriptions:
New
carvedilol 6.25 mg Tablet
6.25 mg PO BID Qty: 60 0RF
levetiracetam 500 mg Tablet
500 mg PO BID Qty: 60 0RF
amlodipine 5 mg Tablet
5 mg PO DAILY Qty: 30 0RF
Continued
atorvastatin 40 mg Tablet
40 mg PO HS
Patient Comments:
08/19/24: Patient part of study, unsure if given atorvastatin or a placebo
cyanocobalamin (vitamin B-12) 1,000 mcg Tablet
1,000 mcg PO DAILY
levothyroxine 88 mcg Tablet
88 mcg PO DAILY
calcium carbonate 500 mg calcium (1,250 mg) Tablet
500 mg PO DAILY
losartan 100 mg Tablet
100 mg PO HS
B Complex Plus Vitamin C 58-42-62-5-300 mg Capsule
1 cap PO DAILY
cholecalciferol (vitamin D3) [Vitamin D3] 50 mcg (2,000 unit) Tablet
50 mcg PO Q48H
Changed
oxcarbazepine 150 mg Tablet
150 mg PO BID Qty: 0 0RF
Discontinued
carvedilol 6.25 mg Tablet
12.5 mg PO BID
escitalopram oxalate 5 mg Tablet
5 mg PO DAILY
Discharge Orders:
Discharge Patient (As Directed); Ordered 08/21/24
Ordered By: Marci Brownlee
Discharge Date and Time
Discharge Date/Time: 08/21/24 15:05
Print Language: SCOTTISH
== END 2024-08-21 15:05 | disposition home or self-care (01) | DRG 641 ==
LOC: 4 WEST ACU 20:30
PROVIDERS: Emergency Medicine; Student in an Organized Health Care Education/Training Program; ADMITTING PHYSICIAN Internal Medicine; ATTENDING PHYSICIAN Family Medicine; CONSULT PHYSICIAN Internal Medicine Nephrology; CONSULT PHYSICIAN Psychiatry & Neurology Neurology; EMERGENCY PHYSICIAN Emergency Medicine; FAMILY PHYSICIAN Internal Medicine
DX: E87.1 Hypo-osmolality and hyponatremia (principal); G40.109 Localization-related (focal) (partial) symptomatic epilepsy and epileptic syndromes with simple partial seizures, not intractable, without status epilepticus; I16.0 Hypertensive urgency; T42.1X5A Adverse effect of iminostilbenes, initial encounter; Y92.9 Unspecified place or not applicable; I10 Essential (primary) hypertension; E89.0 Postprocedural hypothyroidism; R51.9 Headache, unspecified; I44.0 Atrioventricular block, first degree; I45.10 Unspecified right bundle-branch block; R41.3 Other amnesia; F41.1 Generalized anxiety disorder; E55.9 Vitamin D deficiency, unspecified; E78.00 Pure hypercholesterolemia, unspecified; M20.41 Other hammer toe(s) (acquired), right foot; M20.42 Other hammer toe(s) (acquired), left foot; F32.A Depression, unspecified; E78.5 Hyperlipidemia, unspecified; Z90.49 Acquired absence of other specified parts of digestive tract; Z87.891 Personal history of nicotine dependence; Z79.890 Hormone replacement therapy
CPT/HCPCS: 70450; 80048; 80053; 81003; 83735; 83935; 84300; 84443; 84484; 85025; 93005; 94660; 99285